=== PATIENT | male | born 1935 | race Caucasian/White ===

== ENCOUNTER → 2018-02-08 | Outpatient (CLI) | payer MEDICARE, OTHER ==
[~2018-02-08] MED LIST: ALBU.083IS IH; ASCO500 PO; ASPI325; ASPI81CH PO; BUDE6HFA INH; CIPR500 PO; DIAZ5; DIPATR PO; FLUSAL1005; FLUSAL2505; FLUSAL2505 IH; Flagyl250 MG PO; Flomax0.4 MG PO; HYDACE5 PO; KETO10 PO; LANS30EC; LEVFLO500 PO; METR500 PO; Miralax17 GM PO; NEW HTN MED; Norco 5-325 Ta1 EACH PO; Norvasc10 MG PO; OLME20; ONDA8ODT MM; POLY500; PRAV20 PO; PROM25 PO; Percocet 5-3251 EACH PO; RABE20 PO; RXHYDACE PO; TOCO1000 PO; TRAM50 PO; Verotin-Gr Cap1 EACH PO; Zofran Odt4 MG SL; Zofran Odt8 MG SL; Zofran8 MG PO
== END | disposition home or self-care (01) ==
LOC: LAB SHORT 08:19 → PLD 08:19
DX: D48.5 Neoplasm of uncertain behavior of skin (principal)
CPT/HCPCS: 88305